=== PATIENT | female | born 1995 | race Caucasian/White ===

== ENCOUNTER 2018-04-13 12:10 | Emergency (ER) | payer SELFPAY ==
[2018-04-13] MEDS ORDERED: Hyoscyamine 0.125 MG Tab.SL SL ONE (12:24)
--- NOTE | 2018-04-13 12:49 | EDM.PDOC ---
ED HPI GENERAL MEDICAL PROBLEM - General Chief Complaint: Genitourinary Problem Stated Complaint: ABD PAIN Time Seen by Provider: 04/13/18 12:13 Source of Information: Reports: Patient History Limitations: Reports: No Limitations - History of Present Illness INITIAL COMMENTS - FREE TEXT/NARRATIVE: History of present illness: []Patient awoke at 4 AM with severe bladder spasms. Patient denies any pain with urination, even worse, chills, back pain, vaginal bleeding or vaginal discharge. She took Motrin and Tylenol with minimal relief and went to work however bladder spasms returned and are worse. Review of systems: As per history of present illness and below otherwise all systems reviewed and negative. Past medical history: As per history of present illness and as reviewed below otherwise noncontributory. Surgical history: As per history of present illness and as reviewed below otherwise noncontributory. Social history: No reported history of drug or alcohol abuse. Family history: As per history of present illness and as reviewed below otherwise noncontributory. Physical exam: General: Well developed, well nourished in NAD HEENT: Atraumatic, normocephalic, pupils reactive, negative for conjunctival pallor or scleral icterus, mucous membranes moist, throat clear, neck supple, nontender, trachea midline. Lungs: Clear to auscultation, breath sounds equal bilaterally, chest nontender. Heart: S1S2, regular, negative for clicks, rubs, or JVD. Abdomen: Soft, nondistended, nontender. Negative for masses or hepatosplenomegaly. Negative for costovertebral tenderness. Pelvis: Stable nontender. Genitourinary: Deferred. Rectal: Deferred. Extremities: Atraumatic, negative for cords or calf pain. Neurovascular unremarkable. Neuro: Awake, alert, oriented. Cranial nerves II through XII unremarkable. Cerebellum unremarkable. Motor and sensory unremarkable throughout. Exam nonfocal. Diagnostics: []CBC with white count elevation at 11, chemistries negative, urine negative negative, CT negative for appendicitis or any other abnormalities Therapeutics: []IV fluids, morphine, Toradol, Levsin and Zofran. Impression: []Bladder spasms Plan: []Zofran and Toradol for pain follow-up with primary care return if symptoms worsen or change. Definitive disposition and diagnosis as appropriate pending reevaluation and review of above. Bladder Pain Score (Numeric/FACES): 7 - Related Data Allergies Allergy/AdvReac Type Severity Reaction Status Date / Time No Known Allergies Allergy Verified 04/13/18 12:20 Home Meds: Home Meds Ondansetron HCl [Zofran] 4 mg PO Q4HR #12 tablet 04/13/18 [Rx] traMADol HCl [Tramadol HCl] 50 mg PO Q6H PRN #16 tablet 04/13/18 [Rx] Past Medical History Genitourinary History: Reports: Other (See Below) Other Genitourinary History: PCOS Psychiatric History: Reports: Anxiety, Depression Social & Family History - Family History Family Medical History: Noncontributory - Tobacco Use Smoking Status *Q: Never Smoker - Caffeine Use Caffeine Use: Reports: None - Recreational Drug Use Recreational Drug Use: No ED ROS GENERAL - Review of Systems Review Of Systems: See Below (See history of present illness) ED EXAM, RENAL/ - Physical Exam Exam: See Below (See history of present illness) Course - Vital Signs Last Recorded V/S: Last Vital Signs Temp 97.9 F 04/13/18 12:18 Pulse 54 L 04/13/18 16:05 Resp 18 04/13/18 16:05 BP 92/56 L 04/13/18 16:05 Pulse Ox 97 04/13/18 16:05 - Orders/Labs/Meds Orders: Active Orders 24 hr Category Date Time Status Abdomen Pelvis w Cont [CT] Stat Exams 04/13/18 14:10 Taken HCG QUALITATIVE,URINE [URCHEM] Stat Lab 04/13/18 12:25 Ordered UA W/MICROSCOPIC [URIN] Stat Lab 04/13/18 12:25 Ordered Lactated Ringers [Ringers, Lactated] 1,000 ml Med 04/13/18 16:06 Active IV .BOLUS Sodium Chloride 0.9% [Saline Flush] Med 04/13/18 13:19 Active 10 ml FLUSH ASDIRECTED PRN Sodium Chloride 0.9% [Saline Flush] Med 04/13/18 13:19 Active 2.5 ml FLUSH ASDIRECTED PRN Saline Lock Insert [OM.PC] Stat Oth 04/13/18 13:19 Ordered Medication Orders Lactated Ringer's (Ringers, Lactated) 1,000 mls @ 999 mls/hr IV .BOLUS ONE Stop: 04/13/18 17:06 Last Admin: 04/13/18 16:09 Dose: 999 mls/hr Sodium Chloride (Saline Flush) 10 ml FLUSH ASDIRECTED PRN PRN Reason: Keep Vein Open Sodium Chloride (Saline Flush) 2.5 ml FLUSH ASDIRECTED PRN PRN Reason: Keep Vein Open Labs: Laboratory Tests 04/13/18 04/13/18 04/13/18 Range/Units 12:25 12:25 13:28 WBC 11.23 H (4.0-11.0) K/uL RBC 5.01 (4.30-5.90) M/uL Hgb 16.0 (12.0-16.0) g/dL Hct 45.6 (36.0-46.0) % MCV 91.0 (80.0-98.0) fL MCH 31.9 (27.0-32.0) pg MCHC 35.1 (31.0-37.0) g/dL RDW Std Deviation 42.8 (28.0-62.0) fl RDW Coeff of Apurva 13 (11.0-15.0) % Plt Count 330 (150-400) K/uL MPV 9.90 (7.40-12.00) fL Neut % (Auto) 66.2 (48.0-80.0) % Lymph % (Auto) 24.1 (16.0-40.0) % [place] % (Auto) 8.3 (0.0-15.0) % Eos % (Auto) 1.2 (0.0-7.0) % Baso % (Auto) 0.2 (0.0-1.5) % Neut # (Auto) 7.4 H (1.4-5.7) K/uL Lymph # (Auto) 2.7 H (0.6-2.4) K/uL [place] # (Auto) 0.9 H (0.0-0.8) K/uL Eos # (Auto) 0.1 (0.0-0.7) K/uL Baso # (Auto) 0.0 (0.0-0.1) K/uL Nucleated RBC % 0.0 /100WBC Nucleated RBCs # 0 K/uL Sodium (136-145) mmol/L Potassium (3.5-5.1) mmol/L Chloride (98-107) mmol/L Carbon Dioxide (21.0-32.0) mmol/L BUN (7.0-18.0) mg/dL Creatinine (0.6-1.0) mg/dL Est Cr Clr Drug Dosing mL/min Estimated GFR (MDRD) ml/min Glucose (74-106) mg/dL Calcium (8.5-10.1) mg/dL Total Bilirubin (0.2-1.0) mg/dL AST (15-37) IU/L ALT (14-63) IU/L Alkaline Phosphatase (46-116) U/L Total Protein (6.4-8.2) g/dL Albumin (3.4-5.0) g/dL Globulin (2.0-3.5) g/dL Albumin/Globulin Ratio (1.3-2.8) Lipase (73-393) U/L Urine Color YELLOW Urine Appearance CLEAR Urine pH 6.0 (5.0-8.0) Ur Specific [place] >= 1.030 (1.001-1.035) Urine Protein NEGATIVE (NEGATIVE) mg/dL Urine Glucose (UA) NEGATIVE (NEGATIVE) mg/dL Urine Ketones NEGATIVE (NEGATIVE) mg/dL Urine Occult Blood NEGATIVE (NEGATIVE) Urine Nitrite NEGATIVE (NEGATIVE) Urine Bilirubin NEGATIVE (NEGATIVE) Urine Urobilinogen 0.2 (<2.0) EU/dL Ur Leukocyte Esterase NEGATIVE (NEGATIVE) Urine RBC 0-1 (0-2/HPF) Urine WBC 0-1 (0-5/HPF) Ur Epithelial Cells OCCASIONAL (NONE-FEW) Urine Bacteria RARE (NEGATIVE) Urine HCG, Qual NEGATIVE (NEGATIVE) 04/13/18 Range/Units 13:28 WBC (4.0-11.0) K/uL RBC (4.30-5.90) M/uL Hgb (12.0-16.0) g/dL Hct (36.0-46.0) % MCV (80.0-98.0) fL MCH (27.0-32.0) pg MCHC (31.0-37.0) g/dL RDW Std Deviation (28.0-62.0) fl RDW Coeff of [place] (11.0-15.0) % Plt Count (150-400) K/uL MPV (7.40-12.00) fL Neut % (Auto) (48.0-80.0) % Lymph % (Auto) (16.0-40.0) % [place] % (Auto) (0.0-15.0) % Eos % (Auto) (0.0-7.0) % Baso % (Auto) (0.0-1.5) % Neut # (Auto) (1.4-5.7) K/uL Lymph # (Auto) (0.6-2.4) K/uL [place] # (Auto) (0.0-0.8) K/uL Eos # (Auto) (0.0-0.7) K/uL Baso # (Auto) (0.0-0.1) K/uL Nucleated RBC % /100WBC Nucleated RBCs # K/uL Sodium 143 (136-145) mmol/L Potassium 3.8 (3.5-5.1) mmol/L Chloride 106 (98-107) mmol/L Carbon Dioxide 24.9 (21.0-32.0) mmol/L BUN 14 (7.0-18.0) mg/dL Creatinine 1.0 (0.6-1.0) mg/dL Est Cr Clr Drug Dosing 88.26 mL/min Estimated GFR (MDRD) > 60.0 ml/min Glucose 84 (74-106) mg/dL Calcium 9.1 (8.5-10.1) mg/dL Total Bilirubin 0.3 (0.2-1.0) mg/dL AST 27 (15-37) IU/L ALT 47 (14-63) IU/L Alkaline Phosphatase 65 (46-116) U/L Total Protein 8.3 H (6.4-8.2) g/dL Albumin 4.1 (3.4-5.0) g/dL Globulin 4.2 H (2.0-3.5) g/dL Albumin/Globulin Ratio 1.0 L (1.3-2.8) Lipase 214 (73-393) U/L Urine Color Urine Appearance Urine pH (5.0-8.0) Ur Specific [place] (1.001-1.035) Urine Protein (NEGATIVE) mg/dL Urine Glucose (UA) (NEGATIVE) mg/dL Urine Ketones (NEGATIVE) mg/dL Urine Occult Blood (NEGATIVE) Urine Nitrite (NEGATIVE) Urine Bilirubin (NEGATIVE) Urine Urobilinogen (<2.0) EU/dL Ur Leukocyte Esterase (NEGATIVE) Urine RBC (0-2/HPF) Urine WBC (0-5/HPF) Ur Epithelial Cells (NONE-FEW) Urine Bacteria (NEGATIVE) Urine HCG, Qual (NEGATIVE) Meds: Medications Generic Name Dose Route Start Last Admin Trade Name Freq PRN Reason Stop Dose Admin Lactated Ringer's 1,000 mls @ 999 mls/hr 04/13/18 16:06 04/13/18 16:09 Ringers, Lactated IV 04/13/18 17:06 999 mls/hr .BOLUS ONE Administration Sodium Chloride 10 ml 04/13/18 13:19 Saline Flush FLUSH ASDIRECTED PRN Keep Vein Open Sodium Chloride 2.5 ml 04/13/18 13:19 Saline Flush FLUSH ASDIRECTED PRN Keep Vein Open Discontinued Medications Generic Name Dose Route Start Last Admin Trade Name Freq PRN Reason Stop Dose Admin Hyoscyamine 0.125 mg 04/13/18 12:24 04/13/18 12:57 Hyomax-Sl SL 04/13/18 12:25 0.125 mg ONETIME ONE Administration Sodium Chloride 1,000 mls @ 999 mls/hr 04/13/18 13:19 04/13/18 13:33 Normal Saline IV 04/13/18 14:19 999 mls/hr .Bolus ONE Administration Iopamidol 100 ml 04/13/18 14:51 04/13/18 15:05 Isovue Multipack-370 (76%) IVPUSH 04/13/18 14:52 100 ml ONETIME ONE Administration Ketorolac Tromethamine 60 mg 04/13/18 12:53 04/13/18 12:58 Toradol IM 04/13/18 12:54 60 mg ONETIME ONE Administration Morphine Sulfate 2 mg 04/13/18 14:13 04/13/18 14:20 Morphine IVPUSH 04/13/18 14:14 2 mg ONETIME ONE Administration Ondansetron HCl 4 mg 04/13/18 14:14 04/13/18 16:09 Zofran IVPUSH 04/13/18 14:15 4 mg ONETIME ONE Administration Departure - Departure Time of Disposition: 16:15 Disposition: Home, Self-Care 01 Condition: Good Clinical Impression: Right lower quadrant abdominal pain - Discharge Information Prescriptions: Ondansetron HCl [Zofran] 4 mg PO Q4HR #12 tablet traMADol HCl [Tramadol HCl] 50 mg PO Q6H PRN #16 tablet PRN Reason: Pain Referrals: PCP,None [Primary Care Provider] - Forms: ED Department Discharge Additional Instructions: The following information is given to patients seen in the emergency department who are being discharged to home. This information is to outline your options for follow-up care. We provide all patients seen in our emergency department with a follow-up referral. The need for follow-up, as well as the timing and circumstances, are variable depending upon the specifics of your emergency department visit. If you don't have a primary care physician on staff, we will provide you with a referral. We always advise you to contact your personal physician following an emergency department visit to inform them of the circumstance of the visit and for follow-up with them and/or the need for any referrals to a consulting specialist. The emergency department will also refer you to a specialist when appropriate. This referral assures that you have the opportunity for follow-up care with a specialist. All of these measure are taken in an effort to provide you with optimal care, which includes your follow-up. Under all circumstances we always encourage you to contact your private physician who remains a resource for coordinating your care. When calling for follow-up care, please make the office aware that this follow-up is from your recent emergency room visit. If for any reason you are refused follow-up, please contact the [facility] Emergency Department at and asked to speak to the emergency department charge nurse. Tramadol, Flexeril for pain follow-up with primary care return if symptoms worsen or change [facility] [address] [place] [id number] - My Orders Last 24 Hours: My Active Orders 04/13/18 12:25 HCG QUALITATIVE,URINE [URCHEM] Stat UA W/MICROSCOPIC [URIN] Stat 04/13/18 13:19 Sodium Chloride 0.9% [Saline Flush] 10 ml FLUSH ASDIRECTED PRN Sodium Chloride 0.9% [Saline Flush] 2.5 ml FLUSH ASDIRECTED PRN Saline Lock Insert [OM.PC] Stat 04/13/18 14:10 Abdomen Pelvis w Cont [CT] Stat 04/13/18 16:06 Lactated Ringers [Ringers, Lactated] 1,000 ml IV .BOLUS - Assessment/Plan Last 24 Hours: My Active Orders 04/13/18 12:25 HCG QUALITATIVE,URINE [URCHEM] Stat UA W/MICROSCOPIC [URIN] Stat 04/13/18 13:19 Sodium Chloride 0.9% [Saline Flush] 10 ml FLUSH ASDIRECTED PRN Sodium Chloride 0.9% [Saline Flush] 2.5 ml FLUSH ASDIRECTED PRN Saline Lock Insert [OM.PC] Stat 04/13/18 14:10 Abdomen Pelvis w Cont [CT] Stat 04/13/18 16:06 Lactated Ringers [Ringers, Lactated] 1,000 ml IV .BOLUS
[2018-04-13] MEDS ORDERED: Ketorolac 60 MG/2 ML SDV IM ONE (12:53)
[2018-04-13] MEDS ORDERED: Sodium Chloride 0.9% 1,000 ML IV ONE (13:19)
[2018-04-13] MEDS ORDERED: Sodium Chloride 0.9% 10 ML Syringe FLUSH PRN (13:19)
[2018-04-13] MEDS ORDERED: Sodium Chloride 0.9% 2.5 ML Syringe FLUSH PRN (13:19)
[2018-04-13 13:55] LABS: SODIUM,NA 143 mmol/L (136-145)
[2018-04-13 13:56] LABS: CHLORIDE,CL 106 mmol/L (98-107)
[2018-04-13] MEDS ORDERED: Morphine 2 MG/ML Syringe IVPUSH ONE (14:13)
[2018-04-13] MEDS ORDERED: Ondansetron 4 MG/2 ML SDV IVPUSH ONE (14:14)
[2018-04-13] MEDS ORDERED: Iopamidol 755 MG/ML 200 ML Multipack Bottle IVPUSH ONE (14:51)
[2018-04-13] MEDS ORDERED: Lactated Ringers 1,000 ML IV ONE (16:06)
--- NOTE | 2018-04-15 17:56 | CT ---
EXAM DATE: 04/13/18 PATIENT'S AGE: 22 Patient: STEPH CASAS Facility: [place], [place] Site . Site : 1995 Study: CT Abdomen/Pelvis W CONT [id number]/30/2018 3:12:59 PM Ordering Physician: Krish eFrnandez Final Report: Indication: Right lower quadrant pain starting at 4:30 and constant Technique: Contrast enhanced CT abdomen and pelvis. 100 mls Isovue 370. Coronal sagittal reformatted images obtained Comparison: No comparison studies are available. Findings: Heart size normal. No pericardial effusion or pleural effusion. Patchy ground- glass opacity right lower lobe could represent area of pneumonitis. Spleen pancreas liver gallbladder adrenal glands are unremarkable. Symmetric enhancement of the kidneys. Tiny low-density focus in the right kidney too small to characterize. No hydronephrosis. Urinary bladder is unremarkable. Bowel is unremarkable. Normal appendix. No inflammatory change in the abdomen or pelvis. Osseous structures are unremarkable. Impression: 1. No acute intra-abdominal or pelvic process. Normal appendix. 2. Patchy ground-glass opacity in the right lower lobe could represent area of pneumonitis. Please note that all CT scans at this facility use dose modulation, iterative reconstruction, and/or weight-based dosing when appropriate to reduce radiation dose to as low as reasonably achievable. Dictated by Romina Gao MD @ Apr 13 2018 3:59PM (Electronic Signature) Report Signed by Proxy. [facility]PT[facility] HOSPITALAudie
== END 2018-04-13 17:00 | disposition home or self-care (01) ==
LOC: MW.ED 12:10
DX: N32.89 Other specified disorders of bladder (principal); R10.31 Right lower quadrant pain
CPT/HCPCS: 36415; 74177; 80053; 81001; 81025; 83690; 85025; A9270; J1885; J2270; J2405; J7040; J7120; Q9967

== ENCOUNTER 2019-02-11 21:39 | Emergency (ER) | payer SELFPAY ==
--- NOTE | 2019-02-11 22:03 | EDM.PDOC ---
ED HPI GENERAL MEDICAL PROBLEM - General Chief Complaint: Back Pain or Injury Stated Complaint: BACK PAIN Time Seen by Provider: 02/11/19 22:02 Source of Information: Reports: Patient - History of Present Illness INITIAL COMMENTS - FREE TEXT/NARRATIVE: HISTORY AND PHYSICAL: History of present illness: [Patient with history of discectomy in 2016 presents with low back pain slight radiation on the right can reproduce symptoms with palpation of the right paraspinous muscles pain as 4 out of 10 no footdrop saddle anesthesia or bowel or urine symptoms however she did complain of some dysuria on one episode yesterday] Review of systems: As per history of present illness and below otherwise all systems reviewed and negative. Past medical history: As per history of present illness and as reviewed below otherwise noncontributory. Surgical history: As per history of present illness and as reviewed below otherwise noncontributory. Social history: No reported history of drug or alcohol abuse. Family history: As per history of present illness and as reviewed below otherwise noncontributory. Physical exam: HEENT: Atraumatic, normocephalic, pupils reactive, negative for conjunctival pallor or scleral icterus, mucous membranes moist, throat clear, neck supple, nontender, trachea midline. Lungs: Clear to auscultation, breath sounds equal bilaterally, chest nontender. Heart: S1S2, regular, negative for clicks, rubs, or JVD. Abdomen: Soft, nondistended, nontender. Negative for masses or hepatosplenomegaly. Negative for costovertebral tenderness. Pelvis: Stable nontender. Genitourinary: Deferred. Rectal: Deferred. Extremities: Atraumatic, negative for cords or calf pain. Neurovascular unremarkable. Neuro: Awake, alert, oriented. Cranial nerves II through XII unremarkable. Cerebellum unremarkable. Motor and sensory unremarkable throughout. Exam nonfocal. No Footdrop saddle anesthesia Diagnostics: [UA with hCG l- spine Therapeutics: []Tramadol Patient has lidocaine patches Ibuprofen or Tylenol heat or ice whichever gains most benefit Impression: [ back pain ] Definitive disposition and diagnosis as appropriate pending reevaluation and review of above. Lower Back Pain Score (Numeric/FACES): 7 - Related Data Allergies Allergy/AdvReac Type Severity Reaction Status Date / Time No Known Allergies Allergy Verified 02/11/19 21:50 Home Meds: Home Meds . [No Known Home Meds] 02/11/19 [History] Past Medical History HEENT History: Reports: None Cardiovascular History: Reports: None Respiratory History: Reports: None Gastrointestinal History: Reports: None Genitourinary History: Reports: Other (See Below) Other Genitourinary History: PCOS [employer] History: Reports: None Musculoskeletal History: Reports: None Neurological History: Reports: None Psychiatric History: Reports: Anxiety, Depression Endocrine/Metabolic History: Reports: None Hematologic History: Reports: None Immunologic History: Reports: None Oncologic (Cancer) History: Reports: None Dermatologic History: Reports: None - Infectious Disease History Infectious Disease History: Reports: None - Past Surgical History Head Surgeries/Procedures: Reports: None Female Surgical History: Reports: None Other Musculoskeletal Surgeries/Procedures:: back surgery 2016 L 4&5 Social & Family History - Family History Family Medical History: Noncontributory - Tobacco Use Smoking Status *Q: Current Some Day Smoker Years of Tobacco use: 7 Packs/Tins Daily: 0.5 - Caffeine Use Caffeine Use: Reports: None - Recreational Drug Use Recreational Drug Use: No ED ROS GENERAL - Review of Systems Review Of Systems: See Below ED EXAM, GENERAL - Physical Exam Exam: See Below Course - Vital Signs Last Recorded V/S: Last Vital Signs Temp 97.7 F 02/11/19 21:47 Pulse 85 02/11/19 21:47 Resp 18 02/11/19 21:47 BP 124/62 02/11/19 21:47 Pulse Ox 96 02/11/19 21:47 - Orders/Labs/Meds Orders: Active Orders 24 hr Category Date Time Status Lumbar Spine 2 or 3V [CR] Stat Exams 02/11/19 22:28 Taken Labs: Laboratory Tests 02/11/19 02/11/19 Range/Units 22:05 22:05 Urine Color YELLOW Urine Appearance CLEAR Urine pH 7.5 (5.0-8.0) Ur Specific [place] 1.015 (1.001-1.035) Urine Protein NEGATIVE (NEGATIVE) mg/dL Urine Glucose (UA) NEGATIVE (NEGATIVE) mg/dL Urine Ketones NEGATIVE (NEGATIVE) mg/dL Urine Occult Blood NEGATIVE (NEGATIVE) Urine Nitrite NEGATIVE (NEGATIVE) Urine Bilirubin NEGATIVE (NEGATIVE) Urine Urobilinogen 0.2 (<2.0) EU/dL Ur Leukocyte Esterase NEGATIVE (NEGATIVE) Urine HCG, Qual NEGATIVE (NEGATIVE) Meds: Medications Discontinued Medications Generic Name Dose Route Start Last Admin Trade Name Kristen PRN Reason Stop Dose Admin Ketorolac Tromethamine 60 mg 02/11/19 22:44 02/11/19 22:55 Toradol IM 02/11/19 22:45 60 mg ONETIME ONE Administration Departure - Departure Time of Disposition: 23:16 Disposition: Home, Self-Care 01 Condition: Good Clinical Impression: Low back pain - Discharge Information Referrals: PCP,None [Primary Care Provider] - Forms: ED Department Discharge Additional Instructions: The following information is given to patients seen in the emergency department who are being discharged to home. This information is to outline your options for follow-up care. We provide all patients seen in our emergency department with a follow-up referral. The need for follow-up, as well as the timing and circumstances, are variable depending upon the specifics of your emergency department visit. If you don't have a primary care physician on staff, we will provide you with a referral. We always advise you to contact your personal physician following an emergency department visit to inform them of the circumstance of the visit and for follow-up with them and/or the need for any referrals to a consulting specialist. The emergency department will also refer you to a specialist when appropriate. This referral assures that you have the opportunity for follow-up care with a specialist. All of these measure are taken in an effort to provide you with optimal care, which includes your follow-up. Under all circumstances we always encourage you to contact your private physician who remains a resource for coordinating your care. When calling for follow-up care, please make the office aware that this follow-up is from your recent emergency room visit. If for any reason you are refused follow-up, please contact the [facility] emergency department at and asked to speak to the emergency department charge nurse. - My Orders Last 24 Hours: My Active Orders 02/11/19 22:28 Lumbar Spine 2 or 3V [CR] Stat - Assessment/Plan Last 24 Hours: My Active Orders 02/11/19 22:28 Lumbar Spine 2 or 3V [CR] Stat
[2019-02-11] MEDS ORDERED: Ketorolac 60 MG/2 ML SDV IM ONE (22:44)
--- NOTE | 2019-02-12 14:07 | CR ---
EXAM DATE: 02/11/19 PATIENT'S AGE: 23 Patient: STEPH CASAS Facility: [facility] Site . Site : 1995 Study: XRay-Spine Lumbar [id number]/30/2019 10:58:40 PM Ordering Physician: Toney Echevarria Final Report: INDICATION: Pain TECHNIQUE: Lumbar spine 3 view. COMPARISON: None available FINDINGS: Bones: Alignment is normal. No fractures or significant bone lesions. Joints: Slight narrowing of the L5-S1 disc space. The other disc spaces are preserved. Unremarkable facettes Soft tissues: Unremarkable. IMPRESSION: Slight L5-S1 disc space narrowing, otherwise, unremarkable lumbar spine series. Dictated by Neo De Paz MD @ 02/11/2019 11:34:44 PM Dictated by: Neo De Paz MD @ 02/11/2019 23:34:50 Signed by: Neo De Paz MD @02/11/2019 11:34:50 PM (Electronic Signature) Report Signed by Proxy. MTDAudie
== END 2019-02-11 23:30 | disposition home or self-care (01) ==
LOC: MW.ED 21:39
DX: M54.5 Low back pain (principal); F17.210 Nicotine dependence, cigarettes, uncomplicated
CPT/HCPCS: 72100; 81003; 81025; 96372; 99283; J1885

== ENCOUNTER 2019-09-20 15:14 | Emergency (ER) | payer SELFPAY ==
[2019-09-20] MEDS ORDERED: Sodium Chloride 0.9% 1,000 ML IV ONE ×2 (15:20→16:03)
[2019-09-20] MEDS ORDERED: Ketorolac 60 MG/2 ML SDV IM ONE (15:30)
--- NOTE | 2019-09-20 15:35 | EDM.PDOC ---
ED HPI GENERAL MEDICAL PROBLEM - General Chief Complaint: Abdominal Pain Stated Complaint: STOMACH PAINS Time Seen by Provider: 09/20/19 15:15 Source of Information: Reports: Patient History Limitations: Reports: No Limitations - History of Present Illness INITIAL COMMENTS - FREE TEXT/NARRATIVE: HISTORY AND PHYSICAL: History of present illness: Patient is a 24-year-old female who presents to the emergency room with complaints of low abdominal pain. Patient states that she has discomfort when engaging her core muscles or bearing down. Abdominal pain is below her umbilicus and centralized. Patient denies any fever, chills, headache, change in vision, syncope or near syncope. Denies any chest pain, back pain, shortness of breath or cough. Denies any abdominal pain, nausea, vomiting, diarrhea, constipation or dysuria. Denies any concerns of vaginal bleeding, discharge or STDs. States there is a chance of . Has not noted any blood in urine or stool. Patient has been eating and drinking appropriately. Review of systems: As per history of present illness and below otherwise all systems reviewed and negative. Past medical history: As per history of present illness and as reviewed below otherwise noncontributory. Surgical history: As per history of present illness and as reviewed below otherwise noncontributory. Social history: See social history for further information Family history: As per history of present illness and as reviewed below otherwise noncontributory. Physical exam: General: Well-developed and well-nourished 24-year-old female. Alert and oriented. Nontoxic appearing and in no acute distress. HEENT: Atraumatic, normocephalic, pupils equal and reactive bilaterally, negative for conjunctival pallor or scleral icterus, mucous membranes moist, TMs normal bilaterally, throat clear, neck supple, nontender, trachea midline. No drooling or trismus noted. No meningeal signs. No hot potato voice noted. Lungs: Clear to auscultation, breath sounds equal bilaterally, chest nontender. Heart: S1S2, regular rate and rhythm without overt murmur Abdomen: Soft, nondistended, mild discomfort approximately 3 fingerbreadths below the umbilicus. Negative for masses or hepatosplenomegaly. Negative for costovertebral tenderness. Pelvis: Stable nontender. Skin: Intact, warm, dry. No lesions or rashes noted. Extremities: Atraumatic, moves all extremities per self without difficulty or deficits, negative for cords or calf pain. Neurovascular unremarkable. Neuro: Awake, alert, oriented. Cranial nerves II through XII unremarkable. Cerebellum unremarkable. Motor and sensory unremarkable throughout. Exam nonfocal. Notes: Patient has a slight leukocytosis. Will do a CT abd/pelvis. CT abd pelvis which shows a new small focus of decreased enhancement seen in the left lower pole renal cortex. Correlation with urinalysis is recommended to exclude pyelonephritis. (PATIENT HAS NO FLANK TENDERNESS, NEGATIVE UA). Nonspecific infiltration of the right lower quadrant pelvic fat is noted. Findings may be due to omental infarction but correlation with clinical history is recommended to exclude pelvic inflammatory disease. (DENIES PELVIC PAIN/ DISCHARGE OR PAIN WITH INTERCOURSE). The left ovary is best seen on image 145 and is heterogeneous in appearance measuring 5.6 x 3.9 cm. This is better characterized by pelvic ultrasound. If the patient has left lower quadrant pain , ultrasound is also recommended to exclude ovarian torsion. (NO LLQ PAIN OR TENDERNESS) All diagnostics were shared with the patient. Will get a Fitz/Chlamydia send out. Signs and symptoms that would prompt her to return to the emergency room were reviewed and discussed. Supportive care measures were reviewed and discussed. Voices understanding and is agreeable to plan of care. Denies any further questions or concerns at this time. Diagnostics: CBC, CMP, UA, HCGU, CT abd/pelvis Therapeutics: IV fluids, Toradol Prescription: None Impression: Abdominal Pain Plan: 1. Alternate Tylenol and ibuprofen for pain management. Tramadol for moderate to severe pain. 2. Follow-up with your VEHICLE CHECK IN CLERK as we discussed. Return to the ED as needed and as discussed. Definitive disposition and diagnosis as appropriate pending reevaluation and review of above. Lower Abdomen Pain Score (Numeric/FACES): 7 - Related Data Allergies Allergy/AdvReac Type Severity Reaction Status Date / Time No Known Allergies Allergy Verified 09/20/19 15:27 Home Meds: Home Meds traMADol [Ultram] 50 mg PO Q4H PRN #15 tab 09/20/19 [Rx] Past Medical History HEENT History: Reports: None Cardiovascular History: Reports: None Respiratory History: Reports: None Gastrointestinal History: Reports: None Genitourinary History: Reports: Other (See Below) Other Genitourinary History: PCOS VEHICLE CHECK IN CLERK History: Reports: None Musculoskeletal History: Reports: None Neurological History: Reports: None Psychiatric History: Reports: Anxiety, Depression Endocrine/Metabolic History: Reports: None Hematologic History: Reports: None Immunologic History: Reports: None Oncologic (Cancer) History: Reports: None Dermatologic History: Reports: None - Infectious Disease History Infectious Disease History: Reports: None - Past Surgical History Head Surgeries/Procedures: Reports: None Female Surgical History: Reports: None Other Musculoskeletal Surgeries/Procedures:: back surgery 2016 L 4&5 Social & Family History - Family History Family Medical History: Noncontributory - Tobacco Use Smoking Status *Q: Current Every Day Smoker Years of Tobacco use: 8 Packs/Tins Daily: 0.5 - Caffeine Use Caffeine Use: Reports: None - Recreational Drug Use Recreational Drug Use: No ED ROS GENERAL - Review of Systems Review Of Systems: Comprehensive ROS is negative, except as noted in HPI. ED EXAM, GI/ABD - Physical Exam Exam: See Below (See dictation) Course - Vital Signs Last Recorded V/S: Last Vital Signs Temp 97.0 F 09/20/19 15:25 Pulse 65 09/20/19 17:51 Resp 18 09/20/19 17:51 BP 115/83 09/20/19 17:51 Pulse Ox 98 09/20/19 17:51 - Orders/Labs/Meds Labs: Laboratory Tests 09/20/19 09/20/19 09/20/19 Range/Units 15:35 15:35 15:48 WBC 11.07 H (4.0-11.0) K/uL RBC 4.60 (4.30-5.90) M/uL Hgb 14.9 (12.0-16.0) g/dL Hct 49.0 H (36.0-46.0) % MCV 106.5 H (80.0-98.0) fL MCH 32.4 H (27.0-32.0) pg MCHC 30.4 L (31.0-37.0) g/dL RDW Std Deviation 52.5 (28.0-62.0) fl RDW Coeff of Apurva 14 (11.0-15.0) % Plt Count 359 (150-400) K/uL MPV 11.20 (7.40-12.00) fL Neut % (Auto) 63.6 (48.0-80.0) % Lymph % (Auto) 26.3 (16.0-40.0) % Perkins % (Auto) 7.6 (0.0-15.0) % Eos % (Auto) 2.2 (0.0-7.0) % Baso % (Auto) 0.3 (0.0-1.5) % Neut # (Auto) 7.1 H (1.4-5.7) K/uL Lymph # (Auto) 2.9 H (0.6-2.4) K/uL Perkins # (Auto) 0.8 (0.0-0.8) K/uL Eos # (Auto) 0.2 (0.0-0.7) K/uL Baso # (Auto) 0.0 (0.0-0.1) K/uL Nucleated RBC % 0.0 /100WBC Nucleated RBCs # 0 K/uL Sodium (136-145) mmol/L Potassium (3.5-5.1) mmol/L Chloride (98-107) mmol/L Carbon Dioxide (21.0-32.0) mmol/L BUN (7.0-18.0) mg/dL Creatinine (0.6-1.0) mg/dL Est Cr Clr Drug Dosing mL/min Estimated GFR (MDRD) ml/min Glucose (74-106) mg/dL Calcium (8.5-10.1) mg/dL Total Bilirubin (0.2-1.0) mg/dL AST (15-37) IU/L ALT (14-63) IU/L Alkaline Phosphatase (46-116) U/L Total Protein (6.4-8.2) g/dL Albumin (3.4-5.0) g/dL Globulin (2.6-4.0) g/dL Albumin/Globulin Ratio (0.9-1.6) Urine Color YELLOW Urine Appearance CLEAR Urine pH 6.0 (5.0-8.0) Ur Specific Campbell 1.015 (1.001-1.035) Urine Protein NEGATIVE (NEGATIVE) mg/dL Urine Glucose (UA) NEGATIVE (NEGATIVE) mg/dL Urine Ketones NEGATIVE (NEGATIVE) mg/dL Urine Occult Blood NEGATIVE (NEGATIVE) Urine Nitrite NEGATIVE (NEGATIVE) Urine Bilirubin NEGATIVE (NEGATIVE) Urine Urobilinogen 0.2 (<2.0) EU/dL Ur Leukocyte Esterase NEGATIVE (NEGATIVE) Urine HCG, Qual NEGATIVE (NEGATIVE) 09/20/19 Range/Units 15:48 WBC (4.0-11.0) K/uL RBC (4.30-5.90) M/uL Hgb (12.0-16.0) g/dL Hct (36.0-46.0) % MCV (80.0-98.0) fL MCH (27.0-32.0) pg MCHC (31.0-37.0) g/dL RDW Std Deviation (28.0-62.0) fl RDW Coeff of Apurva (11.0-15.0) % Plt Count (150-400) K/uL MPV (7.40-12.00) fL Neut % (Auto) (48.0-80.0) % Lymph % (Auto) (16.0-40.0) % Perkins % (Auto) (0.0-15.0) % Eos % (Auto) (0.0-7.0) % Baso % (Auto) (0.0-1.5) % Neut # (Auto) (1.4-5.7) K/uL Lymph # (Auto) (0.6-2.4) K/uL Perkins # (Auto) (0.0-0.8) K/uL Eos # (Auto) (0.0-0.7) K/uL Baso # (Auto) (0.0-0.1) K/uL Nucleated RBC % /100WBC Nucleated RBCs # K/uL Sodium 138 (136-145) mmol/L Potassium 3.8 (3.5-5.1) mmol/L Chloride 103 (98-107) mmol/L Carbon Dioxide 24.6 (21.0-32.0) mmol/L BUN 14 (7.0-18.0) mg/dL Creatinine 0.9 (0.6-1.0) mg/dL Est Cr Clr Drug Dosing 92.92 mL/min Estimated GFR (MDRD) > 60.0 ml/min Glucose 87 (74-106) mg/dL Calcium 8.7 (8.5-10.1) mg/dL Total Bilirubin 0.5 (0.2-1.0) mg/dL AST 21 (15-37) IU/L ALT 36 (14-63) IU/L Alkaline Phosphatase 60 (46-116) U/L Total Protein 8.2 (6.4-8.2) g/dL Albumin 4.0 (3.4-5.0) g/dL Globulin 4.2 H (2.6-4.0) g/dL Albumin/Globulin Ratio 1.0 (0.9-1.6) Urine Color Urine Appearance Urine pH (5.0-8.0) Ur Specific Campbell (1.001-1.035) Urine Protein (NEGATIVE) mg/dL Urine Glucose (UA) (NEGATIVE) mg/dL Urine Ketones (NEGATIVE) mg/dL Urine Occult Blood (NEGATIVE) Urine Nitrite (NEGATIVE) Urine Bilirubin (NEGATIVE) Urine Urobilinogen (<2.0) EU/dL Ur Leukocyte Esterase (NEGATIVE) Urine HCG, Qual (NEGATIVE) Meds: Medications Discontinued Medications Generic Name Dose Route Start Last Admin Trade Name Freq PRN Reason Stop Dose Admin Sodium Chloride 1,000 mls @ 999 mls/hr 09/20/19 15:20 09/20/19 15:51 Normal Saline IV 09/20/19 16:20 Not Given STAT ONE Sodium Chloride 1,000 mls @ 999 mls/hr 09/20/19 16:03 09/20/19 16:21 Normal Saline IV 09/20/19 17:03 999 mls/hr STAT ONE Administration Iopamidol 100 ml 09/20/19 16:56 09/20/19 16:59 Isovue-370 (76%) IVPUSH 09/20/19 16:57 100 ml ONETIME STA Administration Ketorolac Tromethamine 60 mg 09/20/19 15:30 09/20/19 16:11 Toradol IM 09/20/19 15:31 Not Given ONETIME ONE Ketorolac Tromethamine 30 mg 09/20/19 16:03 09/20/19 16:20 Toradol IVPUSH 09/20/19 16:04 30 mg ONETIME ONE Administration Tramadol HCl 50 mg 09/20/19 17:33 09/20/19 17:48 Ultram PO 09/20/19 17:34 50 mg ONETIME ONE Administration Departure - Departure Time of Disposition: 17:53 Disposition: Home, Self-Care 01 Clinical Impression: Abdominal pain Qualifiers: Abdominal location: periumbilical Qualified Code(s): R10.33 - Periumbilical pain - Discharge Information Instructions: Abdominal Pain, Adult, [id number] Referrals: PCP,None [Primary Care Provider] - Forms: ED Department Discharge Additional Instructions: The following information is given to patients seen in the emergency department who are being discharged to home. This information is to outline your options for follow-up care. We provide all patients seen in our emergency department with a follow-up referral. The need for follow-up, as well as the timing and circumstances, are variable depending upon the specifics of your emergency department visit. If you don't have a primary care physician on staff, we will provide you with a referral. We always advise you to contact your personal physician following an emergency department visit to inform them of the circumstance of the visit and for follow-up with them and/or the need for any referrals to a consulting specialist. The emergency department will also refer you to a specialist when appropriate. This referral assures that you have the opportunity for follow-up care with a specialist. All of these measure are taken in an effort to provide you with optimal care, which includes your follow-up. Under all circumstances we always encourage you to contact your private physician who remains a resource for coordinating your care. When calling for follow-up care, please make the office aware that this follow-up is from your recent emergency room visit. If for any reason you are refused follow-up, please contact the [facility] Emergency Department at and asked to speak to the emergency department charge nurse. [facility] [address] [place] [address] [id number] [address] [address] 1. Alternate Tylenol and ibuprofen for pain management. Tramadol for moderate to severe pain. 2. Follow-up with your VEHICLE CHECK IN CLERK as we discussed. Return to the ED as needed and as discussed.
[2019-09-20] MEDS ORDERED: Ketorolac 30 MG/ML SDV IVPUSH ONE (16:03)
[2019-09-20 16:19] LABS: BLOOD UREA NITROGEN,BUN 14 mg/dL (7.0-18.0); CARBON DIOXIDE,CO2 24.6 mmol/L (21.0-32.0); CHLORIDE,CL 103 mmol/L (98-107); GLUCOSE RANDOM 87 mg/dL (74-106); POTASSIUM,K 3.8 mmol/L (3.5-5.1); SODIUM,NA 138 mmol/L (136-145)
[2019-09-20] MEDS ORDERED: Iopamidol 755 Mg/ML 100 ML Bottle IVPUSH STA (16:56)
[2019-09-20] MEDS ORDERED: traMADol 50 MG Tab PO ONE (17:33)
--- NOTE | 2019-09-20 17:43 | CT ---
INDICATION: Abdominal pain TECHNIQUE: CT Abdomen and pelvis with i.v. contrast. Coronal and sagittal reformats were obtained. CONTRAST: 100 mL Isovue 370 COMPARISON: 04/13/2018 FINDINGS: Lower chest: Unremarkable. Liver: Unremarkable. Spleen: Unremarkable. Pancreas: Unremarkable. Gallbladder: Unremarkable. Kidney: A new small focus of decreased enhancement seen in the left lower pole renal cortex. Adrenal: Unremarkable. Bowel: Unremarkable. The appendix is normal in appearance and size. Vascular: Unremarkable. Lymph: Unremarkable. Peritoneum: Unremarkable. No pneumoperitoneum is seen. A small amount of abdominal ascites is seen. Pelvis: Nonspecific infiltration of the right lower quadrant pelvic fat is noted. The left ovary is best seen on image 145 word is heterogeneous in appearance measuring 5.6 x 3.9 cm. Soft tissue: Unremarkable. Bone: Unremarkable for age. IMPRESSIONS: 1. A new small focus of decreased enhancement seen in the left lower pole renal cortex. Correlation with urinalysis is recommended to exclude pyelonephritis. 2. Nonspecific infiltration of the right lower quadrant pelvic fat is noted. Findings may be due to omental infarction but correlation with clinical history is recommended to exclude pelvic inflammatory disease. 3. The left ovary is best seen on image 145 word is heterogeneous in appearance measuring 5.6 x 3.9 cm. This is better characterized by pelvic ultrasound. If the patient has left lower quadrant pain, ultrasound is also recommended to exclude ovarian torsion. Dictated by Oren Quezada MD @ 09/20/2019 5:42:38 PM Please note that all CT scans at this facility use dose modulation, iterative reconstruction, and/or weight-based dosing when appropriate to reduce radiation dose to as low as reasonably achievable. Dictated by: Oren Quezada MD @ 09/20/2019 17:42:51 (Electronically Signed)
== END 2019-09-20 18:08 | disposition home or self-care (01) ==
LOC: MW.ED 15:14
DX: R10.33 Periumbilical pain (principal); F17.210 Nicotine dependence, cigarettes, uncomplicated
CPT/HCPCS: 36415; 74177; 80053; 81003; 81025; 85025; 87491; 87591; 96361; 96374; 99284; A9270; J1885; J7030; Q9967